=== PATIENT | male | born 1950 | race Caucasian/White ===

== ENCOUNTER → 2017-08-27 | Outpatient (CLI) | payer OTHER ==
[~2017-08-27] MED LIST: ASPI81TA28 PO; MULT-506 PO
--- NOTE | 2017-08-27 16:38 | DIAGNOSTIC IMAGING REPORT ---
L FOOT MIN 3 VIEWS ROUTINE CLINICAL HISTORY: CRUSH INJURY OF LEFT FOOT trauma COMPARISON: None. DISCUSSION: Considerable degenerative change throughout the entire foot. Synovial calcifications as well as soft tissue vascular calcifications. Old avulsion base proximal phalanx second toe. No acute bony abnormality. There is no evidence for soft tissue swelling. IMPRESSION: Degenerative change combined with findings consistent with old trauma. No acute process. The above report was generated using voice recognition software. It may contain grammatical, syntax or spelling errors. Electronically signed by: Esteban Aleman M.D. 08/27/2017 4:37 PM Dictated Date/Time: 08/27/2017 4:36 PM
== END | disposition home or self-care (01) ==
LOC: C.RAD1850 16:16
PROVIDERS: ATTEND Physician Assistant
DX: S97.82XA Crushing injury of left foot, initial encounter (principal); X58.XXXA Exposure to other specified factors, initial encounter; M19.072 Primary osteoarthritis, left ankle and foot

== ENCOUNTER → 2017-12-10 | Outpatient (CLI) | payer OTHER ==
[~2017-12-10] MED LIST changes: +OPTIRAY 320 IV PRN
--- NOTE | 2017-12-10 17:20 | DIAGNOSTIC IMAGING REPORT ---
CT ANGIOGRAM OF THE CHEST CLINICAL HISTORY: Atypical chest pain. COMPARISON STUDY: Chest x-ray dated 01/23/2016. Chest CT dated 06/10/2013. TECHNIQUE: Following the IV administration of 87 cc of Optiray 320, CT angiogram of the chest was performed from the upper abdomen to the thoracic inlet utilizing the pulmonary embolus protocol. Images are reviewed in the axial, sagittal, and coronal planes. 3-D MIPS images are created and assessed. IV contrast was administered without complication. A dose lowering technique was utilized adhering to the principles of ALARA. The Examination is significantly degraded by motion artifact. CT DOSE: 810.52 mGy.cm FINDINGS: Thyroid: Imaged portions of the thyroid gland are normal in size and attenuation. Thoracic aorta: The thoracic aorta is normal in caliber and demonstrates standard 3-vessel arch anatomy. No dissection is seen. Pulmonary vasculature: The pulmonary trunk is normal in caliber. There are no filling defects identified in main, lobar, or proximal segmental pulmonary branches to suggest pulmonary embolus. Evaluation of the peripheral branches is degraded by motion artifact. Heart: The heart is enlarged and without pericardial effusion. The coronary arteries are densely calcified. Lungs and pleural spaces: Evaluation of the lung parenchyma is degraded by motion artifact. No airspace consolidation or pleural effusion is identified scattered calcified granulomas are observed. There is dependent atelectasis. The trachea and central airways appear clear. Mediastinum: There is no mediastinal lymphadenopathy. Joycelyn: Clear. Axillae: There is no axillary lymphadenopathy. Upper abdomen: Partially visualized upper abdominal viscera is within normal limits. Skeletal structures: The skeletal structures are osteopenic. No lytic or blastic bony lesions are seen. IMPRESSION: 1. Motion compromised examination. 2. There is no evidence of central pulmonary embolus in the main, lobar, or proximal segmental pulmonary arteries. 3. Cardiomegaly. 4. No airspace consolidation or pleural effusion is identified. Electronically signed by: Marcin Strange M.D. 12/10/2017 5:19 PM Dictated Date/Time: 12/10/2017 5:14 PM
== END | disposition home or self-care (01) ==
LOC: C.CTS 16:51
PROVIDERS: ATTEND Physician Assistant
DX: R05 Cough (principal); R06.02 Shortness of breath; I51.7 Cardiomegaly; Z86.718 Personal history of other venous thrombosis and embolism

== ENCOUNTER 2018-01-02 19:21 | Emergency (ER) | payer OTHER ==
[~2018-01-02] VITALS: Ht 175.3 cm; Wt 152.3 kg
[~2018-01-02 19:21] MED LIST changes: -OPTIRAY 320 IV PRN
[2018-01-02 19:25] VITALS: TEMP 36.6; Ht 175.3 cm; Wt 152.3 kg
[2018-01-02 20:05] VITALS: O2SAT 97
--- NOTE | 2018-01-02 20:07 | DIAGNOSTIC IMAGING REPORT ---
CHEST ONE VIEW PORTABLE CLINICAL HISTORY: Atypical chest pain COMPARISON STUDY: December 2015 FINDINGS: The heart is enlarged. There is mild interstitial prominence the lung bases, a finding likely accentuated by the patient's large body habitus. There is mild mediastinal prominence unchanged the prior study and likely secondary to fat deposition. There is no lobar consolidation. There are no significant pleural effusions.[ IMPRESSION: Stable cardiomegaly. No evidence of focal pulmonary consolidation Electronically signed by: Eliseo Viveros M.D. 01/02/2018 8:06 PM Dictated Date/Time: 01/02/2018 8:05 PM
[2018-01-02 20:29] LABS: BASO % 0.5 %; BASO ABS # 0.04 K/uL (0-0.2); EOS ABS # 0.31 K/uL (0-0.5); HEMOGLOBIN 14.5 g/dL (14.0-18.0); IG# 0.05 K/uL (0.00-0.02); LYMPH % 27.6 %; LYMPH ABS # 2.16 K/uL (1.2-3.4); MEAN CELL VOLUME 88.5 fL (80-100); MEAN CORPUSCULAR HEMOGLOBIN 29.8 pg (25-34); MEAN CORPUSCULAR HGB CONC 33.7 g/dl (32-36); MEAN PLATELET VOLUME 9.5 fL (7.4-10.4); MONO % 10.5 %; MONO ABS # 0.82 K/uL (0.11-0.59); NEUT % 56.8 %; NEUT ABS # 4.46 K/uL (1.4-6.5); PLATELET COUNT 231 K/uL (130-400); RED CELL DISTRIBUTION WIDTH CV 13.9 % (11.5-14.5); RED CELL DISTRIBUTION WIDTH SD 45.4 fL (36.4-46.3); WHITE BLOOD COUNT 7.84 K/uL (4.8-10.8)
[2018-01-02] MEDS ORDERED: AMLO10TA2 PO (20:43)
[2018-01-02] MEDS ORDERED: LOSA50TA54 PO (20:43)
--- NOTE | 2018-01-02 21:06 | DIAGNOSTIC IMAGING REPORT ---
ULTRASOUND VENOUS DOPPLER LWR EXT BILA CLINICAL HISTORY: Bilateral leg swelling COMPARISON STUDY: May 2013 FINDINGS: Real-time and color flow Doppler imaging were performed. Flow was seen within the femoral, popliteal and calf veins with no intraluminal thrombus demonstrated. The saphenous vein is patent. IMPRESSION: No evidence of lower extremity DVT. Electronically signed by: Eliseo Viveros M.D. 01/02/2018 9:05 PM Dictated Date/Time: 01/02/2018 9:04 PM
[2018-01-02 21:11] LABS: ALBUMIN 3.4 gm/dl (3.4-5.0); BLOOD UREA NITROGEN 15 mg/dl (7-18); CALCIUM 9.2 mg/dl (8.5-10.1); CARBON DIOXIDE 25 mmol/L (21-32); CREATININE 1.11 mg/dl (0.60-1.40); GLUCOSE 110 mg/dl (70-99); LIPASE 112 U/L (73-393); POTASSIUM 3.8 mmol/L (3.5-5.1); SODIUM 137 mmol/L (136-145)
[2018-01-02 21:16] LABS: ALKALINE PHOSPHATASE 84 U/L (45-117); ALT/SGPT 58 U/L (12-78); AST/SGOT 32 U/L (15-37); CKMB 3.6 ng/ml (0.5-3.6); TOTAL PROTEIN 7.9 gm/dl (6.4-8.2)
[2018-01-02 21:22] VITALS: BP 144/87; PULSE 73; O2SAT 94
--- NOTE | 2018-01-02 21:48 | EMERGENCY ROOM VISIT NOTE ---
History Report prepared by Jany: Freddy Morales Under the Supervision of: Dr. Ki Angel M.D. First contact with patient: 19:44 Chief Complaint: SWELLING TO EXTREMITY Stated Complaint: B/L LEG SWELLING- [facility] REFERRED History of Present Illness The patient is a 67 year old male who presents to the Emergency Room with complaints of constant, bilateral, lower leg swelling beginning this afternoon. The patient states he was not on his feet for too long today. He reports he did laundry, dishes, and driving today. The patient notes he sat down to watch TV and within an hour his legs were swelling. He states he recently switched from Lisinopril because he developed a dry cough. The patient reports he changed his medication three weeks ago. He notes since his change, he has gained 15 pounds and his cough is almost gone. The patient denies shortness of breath, abdominal pain, and a history of smoking. Source of History: patient Onset: this afternoon Position: leg (bilateral, lower) Quality: other (swelling) Timing: constant Associated Symptoms: No SOB, No abdominal pain Review of Systems See HPI for pertinent positives & negatives. A total of 10 systems reviewed and were otherwise negative. Past Medical & Surgical Medical Problems: (1) Hypertension (2) Pulmonary embolism Family History Diabetes mellitus FHx: gallbladder disease FHx: heart disease Hypertension Social History Smoking Status: Never Smoker Drug Use: none Marital Status: Housing Status: lives with family Occupation Status: unemployed Current/Historical Medications Scheduled Amlodipine Besylate (Norvasc), 10 MG PO DAILY Aspirin (Aspirin Ec), 81 MG PO DAILY Losartan Potassium (Cozaar), 50 MG PO DAILY Multivitamin (Multivitamin), 1 TAB PO DAILY Allergies Coded Allergies: No Known Allergies (Verified , 01/23/16) Physical Exam Vital Signs Date Time Temp Pulse Resp B/P (MAP) Pulse Ox O2 Delivery O2 Flow Rate FiO2 01/02/18 21:22 73 17 144/87 94 Room Air 01/02/18 20:21 77 14 92 01/02/18 20:16 80 01/02/18 20:12 142/83 01/02/18 20:05 97 Room Air 01/02/18 19:25 36.6 79 18 159/87 95 Room Air Physical Exam GENERAL: Awake, alert, well-appearing, in no acute distress HENT: Normocephalic, atraumatic. Oropharynx unremarkable. EYES: Normal conjunctiva. Sclera non-icteric. NECK: Supple. No nuchal rigidity. FROM. No JVD. RESPIRATORY: Clear to auscultation. CARDIAC: Regular rate, normal rhythm. Extremities warm and well perfused. Pulses equal. ABDOMEN: Soft, non-distended. No tenderness to palpation. No rebound or guarding. No masses. RECTAL: Deferred. MUSCULOSKELETAL: Chest examination reveals no tenderness. The back is symmetrical on inspection without obvious abnormality. There is no CVA tenderness to palpation. No joint edema. LOWER EXTREMITIES: Third spacing present in the legs bilaterally. No pitting edema. No discoloration. NEURO: Normal sensorium. No sensory or motor deficits noted. SKIN: No rash or jaundice noted. Medical Decision & Procedures ER Provider Diagnostic Interpretation: Radiology results as stated below per my review and radiologist interpretation: ULTRASOUND VENOUS DOPPLER LWR EXT BILA CLINICAL HISTORY: Bilateral leg swelling COMPARISON STUDY: May 2013 FINDINGS: Real-time and color flow Doppler imaging were performed. Flow was seen within the femoral, popliteal and calf veins with no intraluminal thrombus demonstrated. The saphenous vein is patent. IMPRESSION: No evidence of lower extremity DVT. Electronically signed by: Eliseo Viveros M.D. 01/02/2018 9:05 PM Dictated Date/Time: 01/02/2018 9:04 PM CHEST ONE VIEW PORTABLE CLINICAL HISTORY: Atypical chest pain COMPARISON STUDY: December 2015 FINDINGS: The heart is enlarged. There is mild interstitial prominence the lung bases, a finding likely accentuated by the patient's large body habitus. There is mild mediastinal prominence unchanged the prior study and likely secondary to fat deposition. There is no lobar consolidation. There are no significant pleural effusions. IMPRESSION: Stable cardiomegaly. No evidence of focal pulmonary consolidation Electronically signed by: Eliseo Viveros M.D. 01/02/2018 8:06 PM Dictated Date/Time: 01/02/2018 8:05 PM Laboratory Results 01/02/18 20:05 Red Blood Count 4.86, Mean Corpuscular Volume 88.5, Mean Corpuscular Hemoglobin 29.8, Mean Corpuscular Hemoglobin Concent 33.7, Mean Platelet Volume 9.5, Neutrophils (%) (Auto) 56.8, Lymphocytes (%) (Auto) 27.6, Monocytes (%) (Auto) 10.5, Eosinophils (%) (Auto) 4.0, Basophils (%) (Auto) 0.5, Neutrophils # (Auto ) 4.46, Lymphocytes # (Auto) 2.16, Monocytes # (Auto) 0.82, Eosinophils # (Auto ) 0.31, Basophils # (Auto) 0.04 01/02/18 20:05 Test 01/02/18 20:05 White Blood Count 7.84 K/uL (4.8-10.8) Red Blood Count 4.86 M/uL (4.7-6.1) Hemoglobin 14.5 g/dL (14.0-18.0) Hematocrit 43.0 % (42-52) Mean Corpuscular Volume 88.5 fL (80-100) Mean Corpuscular Hemoglobin 29.8 pg (25-34) Mean Corpuscular Hemoglobin Concent 33.7 g/dl (32-36) Platelet Count 231 K/uL (130-400) Mean Platelet Volume 9.5 fL (7.4-10.4) Neutrophils (%) (Auto) 56.8 % Lymphocytes (%) (Auto) 27.6 % Monocytes (%) (Auto) 10.5 % Eosinophils (%) (Auto) 4.0 % Basophils (%) (Auto) 0.5 % Neutrophils # (Auto) 4.46 K/uL (1.4-6.5) Lymphocytes # (Auto) 2.16 K/uL (1.2-3.4) Monocytes # (Auto) 0.82 K/uL (0.11-0.59) Eosinophils # (Auto) 0.31 K/uL (0-0.5) Basophils # (Auto) 0.04 K/uL (0-0.2) RDW Standard Deviation 45.4 fL (36.4-46.3) RDW Coefficient of Variation 13.9 % (11.5-14.5) Immature Granulocyte % (Auto) 0.6 % Immature Granulocyte # (Auto) 0.05 K/uL (0.00-0.02) Anion Gap 7.0 mmol/L (3-11) Est Creatinine Clear Calc Drug Dose 95.7 ml/min Estimated GFR () 79.8 Estimated GFR (Non- 68.8 BUN/Creatinine Ratio 13.7 (10-20) Calcium Level 9.2 mg/dl (8.5-10.1) Total Bilirubin 0.2 mg/dl (0.2-1) Direct Bilirubin < 0.1 mg/dl (0-0.2) Aspartate Amino Transf (AST/SGOT) 32 U/L (15-37) Alanine Aminotransferase (ALT/SGPT) 58 U/L (12-78) Alkaline Phosphatase 84 U/L (45-117) Total Creatine Kinase 225 U/L (39-308) Creatine Kinase MB 3.6 ng/ml (0.5-3.6) Creatine Kinase MB Ratio 1.6 (0-3.0) Troponin I < 0.015 ng/ml (0-0.045) Pro-B-Type Natriuretic Peptide 100 pg/ml (0-900) Total Protein 7.9 gm/dl (6.4-8.2) Albumin 3.4 gm/dl (3.4-5.0) Lipase 112 U/L (73-393) Labs reviewed by ED physician. ECG Per My Interpretation Indication: other (LE Swelling) Rate (beats per minute): 78 Rhythm: normal sinus Findings: LBBB, other (No ST elevation or depression) ED Course 1948: Past medical records reviewed. The patient was evaluated in room C04. A complete history and physical examination was performed. 2122: Upon reexamination the patient is resting comfortably. I discussed results and treatment plan with the patient. He verbalizes agreement and understanding. The patient is ready for discharge. Medical Decision Etiologies such as cardiac ischemia, aortic dissection, pulmonary embolism, pneumonia, pneumothorax, musculoskeletal, infections, pericarditis, myocarditis , esophageal rupture, gastrointestinal, as well as others were entertained. This is a 67-year-old male who presents emergency department complaining of bilateral leg swelling. On physical examination I feel that this is actually from third spacing as the patient has been on his feet all day. He does not have any pitting edema. His heart is enlarged on chest x-ray however there is no evidence of pulmonary edema and he has a normal BNP. In addition the patient also does not have any evidence of DVT on ultrasound. Based on these findings I recommended that the patient wear compression stockings. I also recommended a follow-up ultrasound of the patient's legs in 1 week if he is having continued swelling. I also recommended follow-up with the patient's primary care physician. Both patient and are in agreement with the treatment plan. Medication Reconcilliation Current Medication List: was personally reviewed by me Blood Pressure Screening Patient's blood pressure: Elevated blood pressure Blood pressure disposition: Elevated BP felt to be situational Impression Primary Impression: Localized swelling of both lower legs Scribe Attestation The scribe's documentation has been prepared under my direction and personally reviewed by me in its entirety. I confirm that the note above accurately reflects all work, treatment, procedures, and medical decision making performed by me. Departure Information Dispostion Home / Self-Care Referrals No Doctor, Assigned (PCP) Forms HOME CARE DOCUMENTATION FORM, IMPORTANT VISIT INFORMATION, WORK / SCHOOL INSTRUCTIONS Patient Instructions ED Leg Swelling Bilateral, My [facility] Additional Instructions Follow up with Ms Jones Need repeat U/S of legs if conttinued leg swelling You have been examined and treated today on an emergency basis only. This is not a substitute for, or an effort to provide, complete comprehensive medical care. It is impossible to recognize and treat all injuries or illnesses in a single emergency department visit. It is therefore important that you follow up closely with your PCP. Call as soon as possible for an appointment. Thank you for your time and consideration. I look forward to speaking with you again soon. Please don't hesitate to call us if you have any questions.
== END 2018-01-02 21:35 | disposition home or self-care (01) ==
LOC: C.EDB 19:21 → C.EDC 21:35
DX: M79.89 Other specified soft tissue disorders (principal); I10 Essential (primary) hypertension; Z86.711 Personal history of pulmonary embolism; Z83.3 Family history of diabetes mellitus; Z83.79 Family history of other diseases of the digestive system; Z82.49 Family history of ischemic heart disease and other diseases of the circulatory system; Z79.82 Long term (current) use of aspirin; Z79.899 Other long term (current) drug therapy; Z87.891 Personal history of nicotine dependence

== ENCOUNTER 2018-10-26 08:07 | Observation (INO) ==
--- NOTE | 2018-10-20 09:03 | Anesthesiology Consultation ---
Date of Service October 20, 2018 Assessment & Plan Chart Review Chart Review: Acceptable Risk for Surgery and Patient NOT seen in Pre Admission Testing Consults Requested none ASA ASA4 Proposed Anesthesia Anesthesia Type: General History Surgery Operation Date: 10/26/18 11:10 Proposed Procedures p Laparoscopic Cholecystectomy - Philippe Yang MD, FACS Height/Weight Height: 5 ft 9 in Weight: 159 kg Allergies Allergy/AdvReac Type Severity Reaction Status Date / Time Lptuobd-Rfh-Gec Reductase AdvReac Unknown MUSCLE Verified 10/19/18 14:02 Inhibitor ACHES Medications Home Medications Medication Instructions Recorded Confirmed Last Taken amlodipine 10 mg PO QAM 06/30/18 10/19/18 07/06/18 aspirin [Aspir-Low] 81 mg PO HS 06/30/18 10/19/18 07/04/18 losartan 50 mg PO QPM 06/30/18 10/19/18 07/05/18 metformin 500 mg PO BID 06/30/18 10/19/18 07/06/18 multivitamin 1 cap PO QAM 06/30/18 10/19/18 07/04/18 meloxicam 15 mg PO QAM 10/19/18 10/19/18 Unknown Past Medical History Medical History Cardiac murmur Chronic back pain LUMBAR AREA History of tooth extraction ORAL EXTRACTIONS/IMPALNTS Hyperlipidemia NO MEDS-TRYING TO DIET MANAGED Hypertension Morbid (severe) obesity due to excess calories Osteoarthritis Pre-diabetes Pulmonary embolism 4-5 YRS AGO-HAPPENED WITHOUT INJURY OR SURGERY-ON THINNER X 6 MONTHS AND OFF- NO ISSUES SINCE Sleep apnea CPAP Past Family History Family History Father Family history of diabetes mellitus Family hx of colon cancer Brother Family history of diabetes mellitus Past Surgical History Surgical History History of cataract extraction with lens replacement B/L History of colonoscopy Past Anesthesia History No Hx of Anesthesia Complications and No Family Hx of Anesthesia Complications History of PONV No Motion Sickness Screening History of Motion Sickness: No Social History Smoking Status: Never smoker Do You Dip or Chew Tobacco: No Hx Alcohol Use: No Hx Substance Use: No substance use type: does not use Exercise / Class Metabolic Activity III < 4 Walking/Shop/Light housework Testing Electrocardiogram Date: 01/02/18 Findings: + NSR @ (at 79;LAD) and + LBBB Laboratory Results WBC: 9.19 Hc.8 Hct: 45.8 PLATELETS: 233 SODIUM: 139 POTASSIUM:4.5 CHLORIDE: 107 CO2: 25 BUN: 12 CREATININE: 0.83 GLUCOSE: 126 PT: PTT: INR: UA: TYPE AND SCREEN:
[~2018-10-26 08:07] MED LIST changes: -ASPI81TA28 PO; +LIDOCAINE HCL 2% 2 ML VIAL/AMP(20MG/ML) INFIL ONE; +MIDAZOLAM HCL 1 MG/ML 2ML VIAL ONE; -MULT-506 PO; +ONDANSETRON INJ 2 MG/ML 2 ML VIAL ONE; +PROPOFOL IV EMULSION 10 MG/ML 20 ML VIAL IV ONE; +ROCURONIUM BROMIDE 10 MG/ML 5 ML VIAL ONE; +SODIUM CHLORIDE 0.9% 1000ML IV SCH; +cefUROXime 1,500 MG in DEXTROSE 5% 100 ML IV SCH; +fentaNYL citrate 100 MCG/2 ML VIAL ONE
--- NOTE | 2018-10-26 08:46 | History & Physical Bridge Note ---
Date of Service October 26, 2018 History & Physical Bridge Note I have examined the patient, reviewed the History & Physical and in the interval since the performance of the History & Physical I have noted the following changes of clinical significance: no changes noted
[2018-10-26] MEDS ORDERED: BUPIVACAINE 0.5 % 5 MG/1 ML MPF 30ML VIAL ONE (09:13)
--- NOTE | 2018-10-26 09:59 | Operative Report ---
Post Operative Report Pre & Post Diagnosis Operation Date: 10/26/18 09:50 Pre-Op Diagnosis: Biliary Colic Post-Op Diagnosis: Biliary Colic same, chronic cholecystitis, adhesions Procedure Operation Date: 10/26/18 09:50 Actual Procedures p Laparoscopic Cholecystectomy(Not Applicable) - Philippe Yang MD, FACS same with lysis of adhesions Surgeon Philippe Yang MD, FACS [employer] Hunter Estimated Blood Loss 10 Findings Consistent with Post-Op Diagnosis Specimens gallbladder Description of Procedure see dictated note I attest to the content of the Intraoperative Record and any orders documented therein. Any exceptions are noted below.
[2018-10-26] MEDS ORDERED: ACETAMINOPHEN 1,000 MG/100 ML VIAL IV ONE (10:00)
[2018-10-26] MEDS ORDERED: LABETALOL HCL IV 5 MG/ML 20ML IV PRN (10:17)
[2018-10-26] MEDS ORDERED: PROMETHAZINE HCL 12.5 MG in SODIUM CHLORIDE 0.9% 50 ML IV PRN ×2 (10:17→11:23)
[2018-10-26] MEDS ORDERED: ATROPINE SULFATE 0.1 MG/ML 10ML SYR IV PRN (10:17)
[2018-10-26] MEDS ORDERED: fentaNYL citrate 100 MCG/2 ML VIAL IV PRN (10:17)
[2018-10-26] MEDS ORDERED: ONDANSETRON INJ 2 MG/ML 2 ML VIAL IV PRN ×2 (10:17→11:23)
[2018-10-26] MEDS ORDERED: ePHEDrine sulfate 50 MG/ML AMP IV PRN (10:17)
[2018-10-26] MEDS ORDERED: FLUMAZENIL 0.1 MG/1 ML 10 ML VIAL IV PRN (10:17)
[2018-10-26] MEDS ORDERED: NALOXONE HCL 0.4 MG/1 ML VIAL/CARP IV PRN (10:17)
--- NOTE | 2018-10-26 10:47 | Anesthesiology Progress Note ---
Date of Service October 26, 2018 Anesthesia Post Procedure Vital Signs Vital Signs: Temp Pulse Pulse Resp BP BP Pulse Ox 10/26/18 10:40 63 12 134/66 99 10/26/18 10:30 59 L 12 138/61 100 10/26/18 10:20 69 15 135/69 99 10/26/18 10:13 36.3 C L 69 11 L 175/107 H 97 10/26/18 08:38 37.1 C 72 18 158/96 H 98 Pain Intensity Abdomen: Pain Intensity: 3 Notes Mental Status: alert / awake / arousable Patient Amnestic to Procedure: Yes Nausea / Vomiting: adequately controlled Pain: adequately controlled Airway Patency, RR, SpO2: stable & adequate BP & HR: stable & adequate Hydration State: stable & adequate Anesthetic Complications: no major complications apparent
[2018-10-26] MEDS ORDERED: GLYCOPYRROLATE 0.2 MG/ML VIAL ONE (10:53)
[2018-10-26] MEDS ORDERED: ePHEDrine sulfate 50 MG/ML SYR ONE (10:53)
[2018-10-26] MEDS ORDERED: NEOSTIGMINE METHYLSULFATE 5 MG/5 ML SYR ONE (10:54)
[2018-10-26] MEDS ORDERED: HYDROCODONE/ACETAMOPHEN 5/325MG TAB PO PRN (11:23)
[2018-10-26] MEDS ORDERED: MoRPHine SULFATE 4 MG/ML 1 ML CARP\\VIAL IV PRN ×2 (11:23)
--- NOTE | 2018-10-26 12:21 | Hospitalist Consultation ---
Date of Consultation October 26, 2018 Assessment & Plan (1) Abdominal pain: (2) Hypertension: 67-year-old white male admitted to Dr. Yang service because of biliary colic secondary to chronic cholecystitis, the patient had past medical history of obesity post op of laparoscopic cholecystectomy , this condition, pain management, diet , PT OT, discharge plan, DVT prophylaxis will be per primary team hx of hypertension, dyslipidemia, osteoarthritis; stable continue current medication hx of prediabetic, hx of Cardiac murmur, hx of Chronic back pain LUMBAR AREA, hx of Pulmonary embolism, Sleep apnea on CPAP, encourage patient to bring CPAP machine from home and continue at nighttime About condition stable, continue home medication, Order insulin sliding scale as needed, hold metformin, Thank you for the chance involved in care of the patient, will continue follow- up History of Present Illness Attending Physician: Philippe Yang MD, FACS History of Present Illness 67-year-old white male admitted to Dr. Yang service because of biliary colic secondary to chronic cholecystitis, the patient had past medical history of obesity he had procedure of laparoscopic cholecystectomy done this morning, patient tolerated well, When I examining him, he has no complaint, however has abdominal pain when smiling , deep breaths or cough,, denies fever and chill, Review of Systems Constitutional: negative weakness, or fatigue Respiratory: no cough, sputum, wheezing, or dyspnea on exertion Cardiac: No chest pain, No orthopnea, No PND, No claudication, No palpitations , Abdomen: No nausea, No vomiting, No diarrhea, No constipation, No GI bleeding Musculoskeletal: No joint pain, No muscle pain, No swelling, No calf pain, No problem reported : No dysuria, No urinary frequency, No incontinence, No hematuria Neurologic: No paralysis, No weakness, No numbness/tingling, No vertigo, No balance problems Psychiatric: No depression symptoms, No anhedonism, No anxiety, No insomnia, No substance abuse Heme: No abnormal bleeding/bruising, No clotting problems, No swollen lymph nodes, No night sweats Skin: No rash, No itch, No new/changing skin lesions, No color change, No bleeding Allergies Allergy/AdvReac Type Severity Reaction Status Date / Time bee venom protein (honey bee) Allergy itching Verified 10/26/18 08:34 lisinopril Allergy Cough Verified 10/26/18 08:33 Drhkihn-Tgm-Qdh Reductase AdvReac Unknown MUSCLE Verified 10/26/18 08:32 Inhibitor ACHES Home Medications Home Medications Medication Instructions Recorded Confirmed Type amlodipine 10 mg PO QAM 06/30/18 10/26/18 History aspirin [Aspir-Low] 81 mg PO HS 06/30/18 10/26/18 History losartan 50 mg PO QPM 06/30/18 10/26/18 History metformin 500 mg PO BID 06/30/18 10/26/18 History multivitamin 1 cap PO QAM 06/30/18 10/26/18 History meloxicam 15 mg PO QAM 10/19/18 10/26/18 History hydrocodone-acetaminophen [[place]] 1 - 2 tab PO Q6H #30 tab 10/26/18 Rx Patient History Surgical History History of cataract extraction with lens replacement B/L History of colonoscopy Family History Father Family history of diabetes mellitus Family hx of colon cancer Brother Family history of diabetes mellitus Social History Current Living Situation: Spouse Other Information That Helps Us Care for You: No Feels Safe at Home: Yes Safety Concerns: Feels Safe At This Time Smoking Status: Never smoker Do You Dip or Chew Tobacco: No Hx Alcohol Use: No Hx Substance Use: No Beliefs That Will Affect Care: None Preferred Language: Fijian Physical Exam 2 Vital Signs (Past 24 Hours): Last Vital Signs Temp 36.8 C 10/26/18 11:10 Pulse 62 10/26/18 12:11 Resp 16 10/26/18 12:11 BP 153/78 H 10/26/18 12:11 Pulse Ox 96 10/26/18 11:42 Physical Exam: General Appearance: Obesity, pleasant, WD/WN, no apparent distress, Eyes: normal inspection, PERRL, EOMI, sclerae normal ENT: normal ENT inspection, hearing grossly normal, pharynx normal Neck: supple, no adenopathy, thyroid normal, no JVD, no carotid bruits, trachea midline Respiratory/Chest: chest non-tender, normal breath sounds, no respiratory distress, no accessory muscle use, breath sounds, rales, wheezing Cardiovascular: regular rate, rhythm, no JVD, no murmur Abdomen: tender, no bowel sounds, soft, no organomegaly, Extremities: normal range of motion, non-tender, normal inspection, no pedal edema, no calf tenderness, normal capillary refill , pelvis stable, joint has no limited range of motion, capillary refill is normal, no cyanosis clubbing Neurologic/Psychiatric: icu specialist II-XII nml as tested, no motor/sensory deficits, alert, normal mood/affect, oriented x 3 Skin: normal color, warm/dry, no rash Lymphatic: no adenopathy Results & Data Laboratory Results Laboratory Results - last 24 hr 10/26/18 08:26 POC Glucose 114 H
[2018-10-26] MEDS ORDERED: ONDANSETRON INJ 2 MG/ML 2 ML VIAL ONE (12:25)
[2018-10-26] MEDS ORDERED: HYDROCODONE/ACETAMOPHEN 5/325MG TAB PO ONE (12:26)
[2018-10-26] MEDS ORDERED: SODIUM CHLORIDE 0.9% 1000ML 1,000 ML IV SCH (12:30)
--- NOTE | 2018-10-26 12:55 | Operative Report ---
DATE OF OPERATION: 10/26/2018 NAME OF OPERATION: Laparoscopic cholecystectomy with lysis of adhesions. PREOPERATIVE DIAGNOSIS: Biliary colic. POSTOPERATIVE DIAGNOSES: Biliary colic with chronic cholecystitis and adhesions. STAFF SURGEON: Philippe Yang MD CASEWORKER INTAKE: Foster Hunter PA-C ANESTHESIA: General. DESCRIPTION OF PROCEDURE: The patient was brought in the operating room and placed on the operating table in supine position. His abdomen was prepped and draped in usual fashion. My assistant credit manager, Tk helped with prepping, draping, removal of the gallbladder and closure of the wounds. 0.5% plain Marcaine was used to anesthetize the skin and subcutaneous tissue above the umbilicus. Incision made carrying dissection down to the fascia. A Veress needle placed and pneumoperitoneum produced. An 11 mm port placed at this level. Under visualization with the camera passed, three 5 mm ports were placed, 1 cephalad and 2 laterally. The patient was morbidly obese. He had a very large omentum. It was mildly difficult to retract the gallbladder. There were adhesions of a chronic nature to the gallbladder of the omentum. These were taken down bluntly and sharply. Gallbladder was aspirated of bile. There were multiple stones in the gallbladder. Dissection was carried out at the anaya hepatis. The scar tissue was consistent with chronic cholecystitis. Cystic duct and cystic artery were identified, clipped and transected and the gallbladder dissected away from the liver bed in the usual fashion. It was relatively large, placed into an Endobag. After appropriate hemostasis and irrigation, the Endobag was removed through the umbilical site. We did have to enlarge the fascial incision because of the multiple stones. The fascial defect then closed using interrupted 0 PDS suture and then the skin reapproximated all incisions using subcuticular 4-0 Monocryl with Dermabond. The patient was transferred to the recovery room in stable condition. I attest to the content of the Intraoperative Record and any orders documented therein. Any exception s are noted below.
[2018-10-26] MEDS: INSULIN ASPART 100 UNITS/ML 3 ML PEN SC SCH ×2 (17:40→21:29)
[2018-10-26] MEDS: HYDROCODONE/ACETAMOPHEN 5/325MG TAB PO PRN (20:09)
[2018-10-26] MEDS: DOCUSATE SODIUM/SENNA 50/8.6MG TAB PO SCH (20:10)
[2018-10-26] MEDS ORDERED: LOSARTAN POTASSIUM 50 MG TAB PO SCH (21:00)
[2018-10-27] MEDS: HYDROCODONE/ACETAMOPHEN 5/325MG TAB PO PRN (00:32)
--- NOTE | 2018-10-27 07:53 | Anesthesiology Progress Note ---
Date of Service October 27, 2018 Anesthesia Post Procedure Vital Signs Vital Signs: Temp Pulse Pulse Pulse Resp BP BP 10/27/18 03:40 37.3 C 86 17 126/78 10/27/18 00:20 10/26/18 23:25 37.3 C 82 18 180/81 H 10/26/18 20:00 37.3 C 76 20 135/79 10/26/18 15:07 36.6 C 63 22 133/78 10/26/18 14:31 36.7 C 74 16 136/73 10/26/18 13:04 36.4 C L 70 16 135/80 10/26/18 12:11 62 16 153/78 H 10/26/18 11:42 62 16 123/69 10/26/18 11:10 36.8 C 63 16 117/68 10/26/18 10:50 36.3 C L 59 L 13 133/64 10/26/18 10:40 63 12 134/66 10/26/18 10:30 59 L 12 138/61 10/26/18 10:20 69 15 135/69 10/26/18 10:13 36.3 C L 69 11 L 175/107 H 10/26/18 08:38 37.1 C 72 18 158/96 H Pulse Ox Pulse Ox 10/27/18 03:40 92 10/27/18 00:20 92 10/26/18 23:25 94 10/26/18 20:00 94 10/26/18 15:07 96 10/26/18 14:31 94 10/26/18 13:04 96 10/26/18 12:11 10/26/18 11:42 96 10/26/18 11:10 97 10/26/18 10:50 97 10/26/18 10:40 99 10/26/18 10:30 100 10/26/18 10:20 99 10/26/18 10:13 97 10/26/18 08:38 98 Notes Mental Status: alert / awake / arousable and participated in evaluation Nausea / Vomiting: adequately controlled Pain: adequately controlled Airway Patency, RR, SpO2: stable & adequate BP & HR: stable & adequate Hydration State: stable & adequate
[2018-10-27] MEDS ORDERED: AMLODIPINE BESYLATE 5 MG TAB PO SCH (09:00)
[2018-10-27] MEDS ORDERED: MELOXICAM 7.5 MG TAB PO SCH (09:00)
[2018-10-27] MEDS: INSULIN ASPART 100 UNITS/ML 3 ML PEN SC SCH (09:31)
[2018-10-27] MEDS: DOCUSATE SODIUM/SENNA 50/8.6MG TAB PO SCH (09:31)
[2018-10-27 10:06] LABS: Basophils # (auto) 0.02 K/uL (0-0.2); Basophils % (auto) 0.1 %; Eosinophils # (auto) 0.12 K/uL (0-0.5); Eosinophils % (auto) 0.9 %; Hematocrit (blood only) 42.4 % (42-52); Hemoglobin 13.8 g/dL (14.0-18.0); Immature Granulocytes # (auto) 0.04 K/uL (0.00-0.02); Immature Granulocytes % (auto) 0.3 %; Lymphocytes # (auto) 1.74 K/uL (1.2-3.4); Lymphocytes % (auto) 12.9 %; Mean Corpuscular Hgb Conc 32.5 g/dL (32-36); Mean Corpuscular Volume 89.8 fL (80-100); Mean Platelet Volume 9.8 fL (7.4-10.4); Monocytes # (auto) 1.39 K/uL (0.11-0.59); Monocytes % (auto) 10.3 %; Neutrophils # (auto) 10.14 K/uL (1.4-6.5); Neutrophils % (auto) 75.5 %; Platelet Count 209 K/uL (130-400); RDW Coefficient of Variation 14.5 % (11.5-14.5); RDW Standard Deviation 47.2 fL (36.4-46.3); Red Blood Count 4.72 M/uL (4.7-6.1); White Blood Count 13.45 K/uL (4.8-10.8)
[2018-10-27 10:39] LABS: BUN Creatinine Ratio 13.8 (10-20); Calcium 8.6 mg/dl (8.5-10.1); Creatinine Clr Calc Pharmacy 95.7 ml/min; Est GFR (African American) 78.9; Est GFR (Non-African American) 68.1; Magnesium 2.1 mg/dl (1.8-2.4); Potassium 4.1 mmol/L (3.5-5.1)
[2018-10-27 10:40] LABS: Phosphorus 2.9 mg/dl (2.5-4.9)
--- NOTE | 2018-10-27 10:50 | Discharge Summary ---
DATE OF DISCHARGE: 10/27/2018 PRINCIPAL DIAGNOSIS: Chronic cholecystitis. PROCEDURES: The patient underwent laparoscopic cholecystectomy with lysis of adhesions. HOSPITAL COURSE: The patient was brought in the hospital on 10/26/2018 for elective gallbladder surgery. He had been having intermittent abdominal pain and was found to have gallstones on his ultrasound. HOSPITAL COURSE: The patient was taken to the operating room on 10/26/2018 where he underwent laparoscopic cholecystectomy. He had relatively severe adhesions with evidence of chronic cholecystitis. He did tolerate the procedure well and has done well overnight and is felt stable for discharge home to be followed in the surgical clinic within 1-2 weeks.
== END 2018-10-27 11:45 | disposition home or self-care (01) ==
LOC: ASU 08:07 → 3N 10:32 → INTOOBSV 10:32